=== PATIENT | male | born 1980 | race American Indian/Alaskan Native ===

== ENCOUNTER 2021-09-18 17:25 | Emergency (ER) | payer SELFPAY ==
[2021-09-18 19:29] VITALS: BP 120/81
== END 2021-09-19 12:35 | disposition left against medical advice (07) ==
LOC: ED 17:25
DX: R50.9 Fever, unspecified (principal); R05.9 Cough, unspecified; Z53.21 Procedure and treatment not carried out due to patient leaving prior to being seen by health care provider